=== PATIENT | male | born 1950 ===

== ENCOUNTER 2018-10-29 10:07 | Emergency (ER) | payer MEDICARE ==
[2018-10-29 10:14] VITALS: BP 103/74; PULSE 91; RESP 20; TEMP 98.1; O2SAT 100
--- NOTE | 2018-10-29 11:00 | C.PDOC ---
History Of Present Illness 67 y/o male presents to the ER with daughter complaining of left lower leg discoloration and itchy rash which has been present for the past 3-4 months. Patient states that he has known history of psoriasis. Patient reports that [place] [facility] [place] and he was informed that he had psoriasis. He notes that he has not been evaluated by his PMD and a cast shell grinder. Denies having fever,chills, SOB, leg pain, and trauma. Time Seen by Provider: 10/29/18 10:29 Chief Complaint (Nursing): Lower Extremity Problem/Injury History Per: Patient History/Exam Limitations: no limitations Onset/Duration Of Symptoms: Days Current Symptoms Are (Timing): Still Present Severity: Moderate Past Medical History Reviewed: Historical Data, Nursing Documentation, Vital Signs Vital Signs: Last Vital Signs Temp 98.1 F 10/29/18 10:09 Pulse 91 H 10/29/18 10:09 Resp 20 10/29/18 10:09 BP 103/74 10/29/18 10:09 Pulse Ox 100 10/29/18 10:09 - Medical History PMH: No Chronic Diseases Other Surgeries: Hx of surgeries Family History: States: No Known Family Hx - Social History Hx Alcohol Use: Yes Hx Substance Use: No Review Of Systems Except As Marked, All Systems Reviewed And Found Negative. Constitutional: Negative for: Fever, Chills Respiratory: Negative for: Shortness of Breath Musculoskeletal: Negative for: Leg Pain Skin: Positive for: Other (left leg discoloration) Physical Exam - Physical Exam Appears: Non-toxic, No Acute Distress, Other (comfortable) Skin: Warm, Dry, Other (dry scaly skin with purple skin discoloration to left lower leg) Head: Atraumatic, Normacephalic Eye(s): bilateral: Normal Inspection Nose: Normal Oral Mucosa: Moist Neck: Supple Chest: Symmetrical Cardiovascular: Rhythm Regular Respiratory: Normal Breath Sounds, No Rales, No Rhonchi, No Wheezing Extremity: Normal ROM, No Calf Tenderness, Capillary Refill (< 2 seconds), No Swelling Pulses: Left Dorsalis Pedis: Normal Neurological/Psych: Oriented x3, Normal Speech ED Course And Treatment O2 Sat by Pulse Oximetry: 100 (RA) Pulse Ox Interpretation: Normal Progress Note: Patient has been discharged with prescriptions for Hydrocortisone and Salicylic Acid. Patient has been instructed to follow up with PMD and cast shell grinder. Disposition Counseled Patient/Family Regarding: Diagnosis, Need For Followup, Rx Given - Disposition Referrals: Brenden eYung MD [Medical Doctor] - Enrique Ashley MD [Medical Doctor] - Disposition: HOME/ ROUTINE Disposition Time: 11:00 Condition: STABLE Additional Instructions: FOLLOW UP WITH DERMATOLOGY WITHIN 1 WEEK USE MEDICATIONS NEEDED/DIRECTED RETURN TO ER IF SYMPTOMS WORSEN Prescriptions: Hydrocortisone 2.5% 1 appl TP BID PRN #1 oin PRN Reason: Itching / Pruritus Salicylic Acid 1 appl TP DAILY #1 lotion Instructions: Psoriasis (DC) Forms: AMEE (Eritrean) Print Language: THAI - Clinical Impression Clinical Impression: Psoriasis - Scribe Statement The provider has reviewed the documentation as recorded by the Gianna Aguirre Provider Attestation: All medical record entries made by the Gianna were at my direction and personally dictated by me. I have reviewed the chart and agree that the record accurately reflects my personal performance of the history, physical exam, medical decision making, and the department course for this patient. I have also personally directed, reviewed, and agree with the discharge instructions and disposition.
== END 2018-10-29 11:04 | disposition home or self-care (01) ==
LOC: C.ER 10:07
DX: L40.9 Psoriasis, unspecified (principal)